=== PATIENT | female | born 1945 | race Caucasian/White ===

== ENCOUNTER 2017-01-15 02:44 | Emergency (ER) | payer OTHER ==
[2017-01-15 02:53] VITALS: BP 109/77; PULSE 80; RESP 18; TEMP 97.5; O2SAT 89
--- NOTE | 2017-01-15 03:36 | EDPHY ---
H & P Stated Complaint: pt says gastric tube came out Time Seen by Provider: 01/15/17 03:15 HPI/ROS: CHIEF COMPLAINT: G-tube fell out HISTORY OF PRESENT ILLNESS: The patient presents about 30 minutes after her G- tube fell out spontaneously. She is not quite sure how it happened. The balloon is still inflated. She has had this tube in for several months. She denies any bleeding or any other complaints. Review of systems: No abdominal pain, no vomiting No dizziness, no lightheadedness PHYSICAL General Appearance: Alert, no distress Eyes: Pupils equal and round no pallor or injection ENT, Mouth: Mucous membranes moist Gastrointestinal: Abdomen is soft and non-tender, stoma is normal-appearing Neurological: A&O, moves all extremities Extremities: symmetrical, full range of motion Psychiatric: Patient is oriented X 3, there is no agitation Source: Patient - Medical/Surgical History Hx Asthma: No Hx Chronic Respiratory Disease: Yes Hx Diabetes: No Hx Cardiac Disease: Yes Hx Renal Disease: No Hx Cirrhosis: No Hx Alcoholism: No Hx HIV/AIDS: No Hx Splenectomy or Spleen Trauma: No Other PMH: Esophogeal CA, PNA,intermittent htn, ann, osteoporosis,appendectomy , copd - Social History Smoking Status: Current every day smoker Constitutional: Initial Vital Signs Temperature (C) 36.4 C 01/15/17 02:48 Heart Rate 80 01/15/17 02:48 Respiratory Rate 18 01/15/17 02:48 Blood Pressure 109/77 01/15/17 02:48 O2 Sat (%) 89 L 01/15/17 02:48 O2 Delivery Mode Room Air Allergies/Adverse Reactions: No Known Allergies Allergy (Verified 01/15/17 12:16) Home Medications: Medication Instructions Recorded Herbals/Supplements -Info Only 1 ea PO DAILY 08/03/16 LORazepam [Ativan (*)] 0.5 mg PO HS 08/03/16 amLODIPine BESYLATE [Norvasc 5 mg 5 mg PO HS 08/03/16 (*)] Beclomethasone Qvar 80 [Qvar 80 2 puffs IH BID #0 mdi 08/04/16 (*)] Ipratropium/Albuterol [Combivent 1 inh IH QID #1 mdi 08/04/16 Respimat Inhal [place](*)] buPROPion 01/15/17 Medical Decision Making - Diagnostics Imaging: KUB with contrast shows contrast within the stomach, G tube in good position, interpreted by me, radiology interpretation pending. Differential Diagnosis: This is a 71-year-old female with history of esophageal cancer with chronic G- tube which fell out about 30 minutes prior to arrival. It is fully intact. In the emergency room, we placed another G-tube without difficulty. X-ray was performed to confirm placement. The patient was discharged from the emergency room. Departure - Departure Disposition: Home, Routine, Self-Care Clinical Impression: PEG tube malfunction Condition: Good Instructions: How to Use and Care for Your PEG Tube (ED) Referrals: Angeles Thayer MD [Primary Care Provider] - As per Instructions
== END 2017-01-15 03:32 | disposition home or self-care (01) ==
DX: K94.23 Gastrostomy malfunction (principal); I10 Essential (primary) hypertension; J44.9 Chronic obstructive pulmonary disease, unspecified; F17.200 Nicotine dependence, unspecified, uncomplicated; Z85.01 Personal history of malignant neoplasm of esophagus

== ENCOUNTER 2017-01-15 12:15 | Emergency (ER) | payer OTHER ==
[2017-01-15 12:19] VITALS: RESP 18
--- NOTE | 2017-01-15 14:55 | EDPHY ---
H & P Time Seen by Provider: 01/15/17 14:15 HPI/ROS: CHIEF COMPLAINT: PEG malfunction HISTORY OF PRESENT ILLNESS: 71-year-old female presents to the emergency department by private vehicle with concerns about her PEG tube malfunctioning. The patient has a history of throat cancer and has had a PEG tube present since 2012. She states that it frequently will come out on its own. She states that this has happened multiple times. This morning when she woke up she felt moisture and noticed that the tube was out. She tried placing it back in however to will not stay in. She denies abdominal pain currently. She did have some abdominal pain yesterday. She denies fevers or chills. No urinary symptoms. No back pain. REVIEW OF SYSTEMS: Constitutional: No fever, no chills. Eyes: No double or blurry vision. ENT: No sore throat. Respiratory: No cough, no shortness of breath. Cardiac: No chest pain. Gastrointestinal: No abdominal pain, vomiting or diarrhea. Genitourinary: No dysuria. Musculoskeletal: No neck or back pain. Skin: No rashes. Neurological: No headache. Past Medical/Surgical History: Throat cancer status post chemotherapy and radiation now has indwelling PEG tube since 2012 Social History: and lives in [place] Smoking Status: Current every day smoker Physical Exam: General Appearance: Alert, no distress. 126/76, temperature 36.3degrees. Nontoxic appearing. Eyes: Pupils equal and round. Extraocular motions are all intact. ENT: Mouth: Mucous membranes slightly dry. Respiratory: No wheezing, rhonchi, or rales, lungs are clear to auscultation. Cardiovascular: Regular rate and rhythm. Gastrointestinal: PEG tube placed with surrounding dressing. There is no obvious leakage noted from the insertion. There is no redness or signs of cellulitis or infection. Neurological: Alert and oriented x 3, cranial nerves II through XII grossly intact Skin: Warm and dry, no rashes. Musculoskeletal: Nontender to palpate along the cervical, thoracic or lumbar spine. Neck is supple. Extremities: Full range of motion and no peripheral edema. Psychiatric: Patient is oriented X 3, there is no agitation. Constitutional: Initial Vital Signs Temperature (C) 36.3 C 01/15/17 12:16 Heart Rate 82 01/15/17 12:16 Respiratory Rate 18 01/15/17 12:16 Blood Pressure 127/76 H 01/15/17 12:16 O2 Sat (%) 90 L 01/15/17 12:16 O2 Delivery Mode Room Air Allergies/Adverse Reactions: No Known Allergies Allergy (Verified 01/15/17 12:16) Home Medications: Medication Instructions Recorded Herbals/Supplements -Info Only 1 ea PO DAILY 08/03/16 LORazepam [Ativan (*)] 0.5 mg PO HS 08/03/16 amLODIPine BESYLATE [Norvasc 5 mg 5 mg PO HS 08/03/16 (*)] Beclomethasone Qvar 80 [Qvar 80 2 puffs IH BID #0 mdi 08/04/16 (*)] Ipratropium/Albuterol [Combivent 1 inh IH QID #1 mdi 08/04/16 Respimat Inhal [place](*)] buPROPion 01/15/17 Medical Decision Making ED Course/Re-evaluation: 71-year-old female presents with PEG tube malfunction. Interventional Radiology was contacted and Dr. Carlos Roper was able to reposition the PEG to appropriately. The patient was comfortable being discharged home. The PEG tube did not need 2 year placed. Differential Diagnosis: Including but not limited to PEG tube malfunction, perforation, obstruction Departure - Departure Disposition: Home, Routine, Self-Care Clinical Impression: PEG (percutaneous endoscopic gastrostomy) adjustment/replacement/removal Condition: Good Instructions: How to Use and Care for Your PEG Tube (ED) Additional Instructions: Follow up if you develop any problems with your PEG tube. Referrals: Angeles Thayer MD [Primary Care Provider] - As per Instructions
[2017-01-15] MEDS ORDERED: IOPAMIDOL (ISOVUE-300) 100 ML BTL IV ONE (17:24)
[2017-01-15 17:45] VITALS: BP 102/75; PULSE 75; TEMP 97.7; O2SAT 98
== END 2017-01-15 17:39 | disposition home or self-care (01) ==
DX: Z43.1 Encounter for attention to gastrostomy (principal); F17.200 Nicotine dependence, unspecified, uncomplicated; Z85.819 Personal history of malignant neoplasm of unspecified site of lip, oral cavity, and pharynx
CPT/HCPCS: 76000; 99284; Q9967

== ENCOUNTER → 2017-07-22 | Outpatient (CLI) | payer OTHER | LOC: BRMIMAGING 13:27 | PROVIDERS: ATTEND Internal Medicine ==

== ENCOUNTER → 2017-12-15 | Outpatient (CLI) | payer OTHER | LOC: CIMAGING 15:28 | PROVIDERS: ATTEND Internal Medicine | DX: J98.4 Other disorders of lung (principal) | CPT/HCPCS: 71046-PO ==

== ENCOUNTER → 2018-02-28 | Day surgery (SDC) | payer OTHER ==
[~2018-02-28] MED LIST: IOPAMIDOL (ISOVUE-300) 100 ML BTL ONE
== END | disposition home or self-care (01) ==
LOC: FIMAGING 09:53
PROVIDERS: ATTEND Internal Medicine Hematology & Oncology
PROC: 0DHA7DZ Insertion of Intraluminal Device into Jejunum, Via Natural or Artificial Opening (ICD-10-PCS; principal; 2018-02-28)
PROC: 0DP07UZ Removal of Feeding Device from Upper Intestinal Tract, Via Natural or Artificial Opening (ICD-10-PCS; principal; 2018-02-28)
DX: Z43.1 Encounter for attention to gastrostomy (principal)
CPT/HCPCS: Q9967

== ENCOUNTER → 2018-03-08 | Outpatient (CLI) | payer OTHER | LOC: FIMAGING 11:55 | PROVIDERS: ATTEND Internal Medicine Hematology & Oncology | DX: R91.1 Solitary pulmonary nodule (principal); I70.0 Atherosclerosis of aorta; J43.2 Centrilobular emphysema; K14.8 Other diseases of tongue; I65.23 Occlusion and stenosis of bilateral carotid arteries; C13.9 Malignant neoplasm of hypopharynx, unspecified; C10.3 Malignant neoplasm of posterior wall of oropharynx | CPT/HCPCS: 70491; 71260; Q9967 ==

== ENCOUNTER 2018-09-14 10:49 | Emergency (ER) | payer OTHER ==
[2018-09-14 10:56] VITALS: BP 121/71
--- NOTE | 2018-09-14 11:35 | EDPHY ---
H & P Stated Complaint: G tube dislodged. 5th time. No pain. Time Seen by Provider: 09/14/18 11:21 HPI/ROS: CHIEF COMPLAINT: G-tube fell out HISTORY OF PRESENT ILLNESS: 72-year-old female presents with a chief complaint of G tube falling out. Just prior to arrival, she was at the library when the Gtube accidentally fell out. Gtube in place for 5 years. No abdominal pain, vomiting or fever. No other complaints. - Personal History Current Tetanus/Diphtheria Vaccine: Yes - Medical/Surgical History Hx Asthma: No Hx Chronic Respiratory Disease: Yes Hx Diabetes: No Hx Cardiac Disease: Yes Hx Renal Disease: No Hx Cirrhosis: No Hx Alcoholism: No Hx HIV/AIDS: No Hx Splenectomy or Spleen Trauma: No Other PMH: Esophogeal CA, PNA,intermittent htn, ann, osteoporosis,appendectomy , copd - Social History Smoking Status: Current every day smoker - Physical Exam Exam: General Appearance: Alert, pleasant Eyes: Pupils equal and round ENT, Mouth: Mucous membranes moist Neck: Normal inspection Respiratory: Normal respiratory rate Cardiovascular: Regular rate and rhythm Gastrointestinal: Abdomen is soft and nontender, G-tube back in place, feels secure Neurological: A&O, nonfocal, normal gait Skin: Warm and dry Psychiatric: Mood and affect normal Constitutional: Initial Vital Signs Temperature (C) 36.7 C 09/14/18 10:54 Heart Rate 91 09/14/18 10:54 Respiratory Rate 16 09/14/18 10:54 Blood Pressure 121/71 H 09/14/18 10:54 O2 Sat (%) 91 L 09/14/18 10:54 O2 Delivery Mode Room Air Allergies/Adverse Reactions: No Known Allergies Allergy (Verified 09/14/18 10:54) Home Medications: Medication Instructions Recorded Herbals/Supplements -Info Only 1 ea PO DAILY 08/03/16 LORazepam [Ativan (*)] 0.5 mg PO HS 08/03/16 amLODIPine BESYLATE [Norvasc 5 mg 5 mg PO HS 08/03/16 (*)] Beclomethasone Qvar 80 [Qvar 80] 2 puffs IH BID #0 mdi 08/04/16 Ipratropium/Albuterol [Combivent 1 inh IH QID #1 mdi 08/04/16 Respimat Inhal [place](*)] buPROPion 01/15/17 Medical Decision Making ED Course/Re-evaluation: Feeding tube dislodgment in pt with long h/o Gtube in place and a well- established tract. Gtube replaced by ED RN. Feels secure and functioning properly. Departure - Departure Disposition: Home, Routine, Self-Care Clinical Impression: Gastrostomy tube replacement Condition: Good Instructions: How to Use and Care for Your PEG Tube (ED) Referrals: Angeles Thayer MD [Primary Care Provider] - As per Instructions
== END 2018-09-14 11:45 | disposition home or self-care (01) ==
DX: K94.20 Gastrostomy complication, unspecified (principal); J44.9 Chronic obstructive pulmonary disease, unspecified; C15.9 Malignant neoplasm of esophagus, unspecified; F17.200 Nicotine dependence, unspecified, uncomplicated

== ENCOUNTER → 2018-09-19 | Outpatient (CLI) | payer OTHER ==
[~2018-09-19] MED LIST changes: +GADOBUTROL 10 ML VIAL IVP ONE; -IOPAMIDOL (ISOVUE-300) 100 ML BTL ONE
== END ==
LOC: FIMAGING 11:54
PROVIDERS: ATTEND Internal Medicine
DX: R42 Dizziness and giddiness (principal); G31.9 Degenerative disease of nervous system, unspecified; Z78.0 Asymptomatic menopausal state
CPT/HCPCS: 70553; A9585

== ENCOUNTER → 2018-09-29 | Day surgery (SDC) | payer OTHER ==
[~2018-09-29] MED LIST changes: -GADOBUTROL 10 ML VIAL IVP ONE; +IOPAMIDOL (ISOVUE-300) 100 ML BTL ONE
== END | disposition home or self-care (01) ==
LOC: FIMAGING 12:08
PROVIDERS: ATTEND Internal Medicine Hematology & Oncology
DX: K94.23 Gastrostomy malfunction (principal)
CPT/HCPCS: 49452; C1729; C1769; Q9967

== ENCOUNTER → 2018-10-05 | Outpatient (CLI) | payer OTHER | LOC: BRMIMAGING 08:43 | PROVIDERS: ATTEND Internal Medicine | DX: Z13.820 Encounter for screening for osteoporosis (principal); M81.0 Age-related osteoporosis without current pathological fracture; Z78.0 Asymptomatic menopausal state ==

== ENCOUNTER → 2019-02-20 | Outpatient (CLI) | payer OTHER | LOC: FIMAGING 11:56 | PROVIDERS: ATTEND Family Medicine | DX: R42 Dizziness and giddiness (principal); R19.5 Other fecal abnormalities; R26.89 Other abnormalities of gait and mobility; D64.9 Anemia, unspecified; I63.9 Cerebral infarction, unspecified; R27.0 Ataxia, unspecified ==

== ENCOUNTER 2019-02-23 13:45 | Emergency (ER) | payer OTHER ==
[2019-02-23 14:21] LABS: PLATELET COUNT 314 10^3/uL (150-400)
[2019-02-23] MEDS ORDERED: PANTOPRAZOLE SODIUM 40 MG VIAL IVP ONE (14:36)
--- NOTE | 2019-02-23 14:39 | EDPHY ---
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 Onset of lightheadedness 3 weeks ago, associated with black stools. Black stools occur twice daily. Seen by PCP today and hematocrit 33. Concern for GI bleed. The patient has a PEG tube and does not take anything by mouth. Also has a chronic cough x 6 months. Feels SOB with exertion. Has an appointment with GI in 2 weeks. Has a prescription for Protonix, but has not started Protonix yet. No associated abdominal pain or vomiting. REVIEW OF SYSTEMS: complete 10 point ROS reviewed and is negative except for the noted elements in the HPI - Medical/Surgical History Hx Asthma: No Hx Chronic Respiratory Disease: Yes Hx Diabetes: No Hx Cardiac Disease: Yes Hx Renal Disease: No Hx Cirrhosis: No Hx Alcoholism: No Hx HIV/AIDS: No Hx Splenectomy or Spleen Trauma: No Other PMH: Esophogeal CA, PNA,intermittent htn, ann, osteoporosis,appendectomy , copd - Social History Smoking Status: Current every day smoker Alcohol Use: Sober - Physical Exam Exam: General Appearance: Alert, pleasant Eyes: Pupils equal and round, no conjunctival pallor ENT, Mouth: Mucous membranes moist Neck: Normal inspection Respiratory: Lungs are clear to auscultation Cardiovascular: Regular rate and rhythm Gastrointestinal: Abdomen is soft and nontender Rectal: Greenish stool, no black or bloody stool Neurological: A&O, nonfocal, normal gait Skin: Warm and dry, no rash Extremities: Nontender, no pedal edema Psychiatric: Mood and affect normal Constitutional: Initial Vital Signs Temperature (C) 36.5 C 02/23/19 13:48 Heart Rate 82 02/23/19 13:48 Respiratory Rate 16 02/23/19 13:48 Blood Pressure 128/57 H 02/23/19 13:48 O2 Sat (%) 90 L 02/23/19 13:48 O2 Delivery Mode Room Air Allergies/Adverse Reactions: No Known Allergies Allergy (Verified 09/14/18 10:54) Home Medications: Medication Instructions Recorded amLODIPine BESYLATE [Norvasc 5 mg 5 mg PO HS 08/03/16 (*)] Ipratropium/Albuterol [Combivent 1 inh IH QID #1 mdi 08/04/16 Respimat Inhal [place](*)] Flovent 110 MCG Hfa MDI (*) 02/23/19 Spiriva Inhaler (RX) 02/23/19 Medical Decision Making - Diagnostics EKG Interpretation: EKG interpreted by me reveals NSR, rate 76, poor R wave progression. Interpretation: abnormal EKG Imaging Results: Chest X-Ray 02/23/19 14:39 Impression: Stable hyperaerated chest without acute cardiopulmonary process. Imaging: I viewed and interpreted images myself ED Course/Re-evaluation: This patient presents with lightheadedness and a clinical history suggestive upper GI hemorrhage. Stool is positive for occult blood, not frankly bloody. Hematocrit is 35. Protonix 40 mg IV given. Discussed with the patient, admission vs d/c home. Pt greatly prefers d/c home and I feel this is a safe plan. I consulted Dr. Ruelas, who will help arrange f/u for the patient in the office on Tuesday or Tuesday. Pt will start oral PPI tomorrow. Differential Diagnosis: includes though not limited to severe anemia, esophageal varices/tumor, PUD, lower GI bleed such as diverticular bleed - Data Points Laboratory Results: Laboratory Results 02/23/19 14:11 02/23/19 14:11 Medications Given: Discontinued Medications Pantoprazole Sodium (Protonix) 40 mg IVP EDNOW ONE Stop: 02/23/19 14:37 Last Admin: 02/23/19 14:57 Dose: 40 mg Point of Care Test Results: Chemistry 02/23/19 14:28 POC Troponin I 0.00 ng/mL ng/mL (0.00-0.08) Departure - Departure Disposition: Home, Routine, Self-Care Clinical Impression: GI bleeding Qualifiers: GI bleed type/associated pathology: unspecified gastrointestinal hemorrhage type Qualified Code(s): K92.2 - Gastrointestinal hemorrhage, unspecified Condition: Good Instructions: Gastrointestinal Bleeding (ED) Additional Instructions: Dr. Ruelas's office will call you this afternoon with an appointment time. GI will see you on Tuesday or Tuesday. Over the weekend, please return for worsening symptoms, increasing bleeding or any concerns. Referrals: Maria D Carlos MD [Primary Care Provider] - As per Instructions Oliver Ruelas MD [Medical Doctor] - As per Instructions
--- NOTE | 2019-02-23 15:17 | CPEKG ---
Test Reason : OPEN Blood Pressure : / mmHG Vent. Rate : 076 BPM Atrial Rate : 076 BPM P-R Int : 153 ms QRS Dur : 059 ms QT Int : 374 ms P-R-T Axes : 083 060 056 degrees QTc Int : 421 ms Sinus rhythm Anteroseptal infarct, age indeterminate Confirmed by Lianne Cee ([id number]) on 02/23/2019 3:16:43 PM Referred By: LIANNE CEE Confirmed By:Lianne Cee
[2019-02-23 15:45] VITALS: BP 123/78
== END 2019-02-23 15:47 | disposition home or self-care (01) ==
DX: K92.2 Gastrointestinal hemorrhage, unspecified (principal); F17.200 Nicotine dependence, unspecified, uncomplicated
CPT/HCPCS: 84484-ER; 96374

== ENCOUNTER 2019-04-11 17:19 | Emergency (ER) | payer OTHER ==
[2019-04-11 17:25] VITALS: BP 131/68
--- NOTE | 2019-04-11 18:12 | EDPHY ---
H & P Stated Complaint: G - tube fell out Time Seen by Provider: 04/11/19 17:35 HPI/ROS: Chief Complaint: G-tube dislodged HPI: Patient presents the ED after G-tube dislodged. She is chronically G- tube fed secondary to throat cancer. The patient reports the balloon ruptured. She denies any acute abdominal pain. She denies vomiting or diarrhea. REVIEW OF SYSTEMS: Review of systems as above Source: Patient - Personal History Current Tetanus Diphtheria and Acellular Pertussis (TDAP): Yes - Medical/Surgical History Hx Asthma: No Hx Chronic Respiratory Disease: Yes Hx Diabetes: No Hx Cardiac Disease: Yes Hx Renal Disease: No Hx Cirrhosis: No Hx Alcoholism: No Hx HIV/AIDS: No Hx Splenectomy or Spleen Trauma: No Other PMH: Esophogeal CA, PNA,intermittent htn, ann, osteoporosis,appendectomy , copd - Social History Smoking Status: Current every day smoker - Physical Exam Exam: General Appearance: Alert, no distress Gastrointestinal: Abdomen is soft and nontender, no masses, bowel sounds normal , pink and dry fistula noted on anterior abdominal wall Skin: Warm and dry, no rashes Constitutional: Initial Vital Signs Temperature (C) 36.8 C 04/11/19 17:22 Heart Rate 88 04/11/19 17:22 Respiratory Rate 16 04/11/19 17:22 Blood Pressure 131/68 H 04/11/19 17:22 O2 Delivery Mode Room Air Allergies/Adverse Reactions: No Known Allergies Allergy (Verified 09/14/18 10:54) Home Medications: Medication Instructions Recorded amLODIPine BESYLATE [Norvasc 5 mg 5 mg PO HS 08/03/16 (*)] Ipratropium/Albuterol [Combivent 1 inh IH QID #1 mdi 08/04/16 Respimat Inhal [place](*)] Flovent 110 MCG Hfa MDI (*) 02/23/19 Spiriva Inhaler (RX) 02/23/19 Omeprazole 04/11/19 Serevent Diskus (*) 04/11/19 Medical Decision Making Procedures: Procedure: G-tube replacement A 20 [place] G-tube was replaced in the patient's abdominal wall without complication. Gastric contents were aspirated. The patient tolerated the procedure well will be discharged home. Departure - Departure Disposition: Home, Routine, Self-Care Clinical Impression: Malfunction of gastrostomy tube Condition: Good Instructions: How to Use and Care for Your PEG Tube (ED) Additional Instructions: 1. Return to the ED for any abdominal pain, recurrent tube malfunction or other concerns. Referrals: Maria D Carlos MD [Primary Care Provider] - As per Instructions
== END 2019-04-11 18:15 | disposition home or self-care (01) ==
PROC: 0DH67UZ Insertion of Feeding Device into Stomach, Via Natural or Artificial Opening (ICD-10-PCS; principal; 2019-04-11)
DX: K94.23 Gastrostomy malfunction (principal); C14.0 Malignant neoplasm of pharynx, unspecified

== ENCOUNTER 2019-04-23 13:46 | Emergency (ER) | payer OTHER ==
--- NOTE | 2019-04-23 15:22 | EDPHY ---
HPI/HX/ROS/PE/MDM Narrative: CHIEF COMPLAINT: G-tube malfunction HPI: This patient is a 73-year-old female with history of esophageal cancer. She is chronically fed by G-tube secondary to this, which was replaced 04/11 in this ED. Tuesday, she developed pain at the insertion site, particularly with movement including coughing. She has had a G-tube for the past five years and the discomfort is unusual for her. It has been leaking more than ever before as well. Today, she lifted the tube briefly to clean around it, and she had sudden pain, so sharp that she felt she was going to faint. She has noted tenderness and mild erythema surrounding the site. She denies fever, vomiting, chest pain, difficulty breathing, headache, or other associated symptoms. REVIEW OF SYSTEMS: A comprehensive 10 system review of systems is otherwise negative aside from elements mentioned in the history of present illness and medical decision making. PMH: Esophageal cancer. Hypertension. COPD. History of pneumonia. Osteoporosis. History of cholecystectomy, appendectomy. SOCIAL HISTORY: . at bedside. Retired. Lives in [place]. PHYSICAL EXAM: General:Patient is alert, in no acute distress. ENT:Eyes are normal to inspection. ENT inspection normal. Neck: Normal inspection. Full range of motion. Respiratory:No respiratory distress. Breath sounds normal bilaterally. Cardiovascular: Regular rate and rhythm. Strong peripheral pulses. Normal cap refill. Abdomen: G-tube in place. No discharge, no erythema. Mild tenderness described as "soreness" around the site. There are no peritoneal signs. There are normal bowel sounds. Back: Normal to inspection. No tenderness to palpation. Skin: Normal color. No rash. Warm and dry. Extremities: Normal appearance. Full range of motion. Neuro: Oriented x3. Normal motor function. Normal sensory function. ED Course: 73 y/o female presents with discomfort and tenderness around her g-tube insertion site, ongoing for three days. Plan for abdominal x-ray, labs including CBC, chemistries. X-ray shows gastrostomy in the left upper quadrant of the abdomen, no acute processes noted. Laboratory studies are largely unremarkable. 16:[address] Gibson, general surgeon. He will evaluate the patient here in the ED. Dr. Gibson has evaluated the patient. He notes the the G-tube may have been slightly too tight. He adjusted this and the patient feels considerable relief. Saline flush is successful. The patient may follow up in his office for further evaluation and management. Reassessed patient. She continues to feel better and is comfortable with discharge home. Follow up and return precautions discussed. She is comfortable with this plan. - Data Points Imaging Results: Imaging Impressions Abdomen X-Ray 04/23/19 15:31 Impression: 1. Gastrostomy in the left upper quadrant of the abdomen. 2. Prior cholecystectomy. 3. Nonspecific bowel gas pattern. Imaging: I viewed and interpreted images myself Laboratory Results: Laboratory Results 04/23/19 15:50 04/23/19 15:50 04/23/19 04/23/19 15:50 15:50 WBC 6.45 10^3/uL 10^3/uL (3.80-9.50) RBC 3.97 10^6/uL L 10^6/uL (4.18-5.33) Hgb 13.6 g/dL g/dL (12.6-16.3) Hct 40.6 % % (38.0-47.0) MCV 102.3 fL H fL (81.5-99.8) MCH 34.3 pg H pg (27.9-34.1) MCHC 33.5 g/dL g/dL (32.4-36.7) RDW 14.4 % % (11.5-15.2) Plt Count 246 10^3/uL 10^3/uL (150-400) MPV 10.0 fL fL (8.7-11.7) Neut % (Auto) 66.8 % % (39.3-74.2) Lymph % (Auto) 17.8 % % (15.0-45.0) [place] % (Auto) 14.1 % H % (4.5-13.0) Eos % (Auto) 0.8 % % (0.6-7.6) Baso % (Auto) 0.3 % % (0.3-1.7) Nucleat RBC Rel Count 0.0 % % (0.0-0.2) Absolute Neuts (auto) 4.31 10^3/uL 10^3/uL (1.70-6.50) Absolute Lymphs (auto) 1.15 10^3/uL 10^3/uL (1.00-3.00) Absolute Monos (auto) 0.91 10^3/uL H 10^3/uL (0.30-0.80) Absolute Eos (auto) 0.05 10^3/uL 10^3/uL (0.03-0.40) Absolute Basos (auto) 0.02 10^3/uL 10^3/uL (0.02-0.10) Absolute Nucleated RBC 0.00 10^3/uL 10^3/uL (0-0.01) Immature Gran % 0.2 % % (0.0-1.1) Immature Gran # 0.01 10^3/uL 10^3/uL (0.00-0.10) Sodium 136 mEq/L mEq/L (135-145) Potassium 3.8 mEq/L mEq/L (3.5-5.2) Chloride 99 mEq/L mEq/L (97-110) Carbon Dioxide 29 mEq/l mEq/l (22-31) Anion Gap 8 mEq/L mEq/L (6-14) BUN 17 mg/dL mg/dL (7-23) Creatinine 0.5 mg/dL L mg/dL (0.6-1.0) Estimated GFR > 60 Glucose 79 mg/dL mg/dL (70-100) Calcium 10.0 mg/dL mg/dL (8.5-10.4) General Time Seen by Provider: 04/23/19 14:32 Initial Vital Signs: Initial Vital Signs Temperature (C) 36.7 C 04/23/19 13:49 Heart Rate 86 04/23/19 13:49 Respiratory Rate 16 04/23/19 13:49 Blood Pressure 145/81 H 04/23/19 13:49 O2 Sat (%) 89 L 04/23/19 13:49 O2 Delivery Mode Room Air Allergies/Adverse Reactions: No Known Allergies Allergy (Verified 04/23/19 13:52) Home Medications: Medication Instructions Recorded amLODIPine BESYLATE [Norvasc 5 mg 5 mg PO HS 08/03/16 (*)] Flovent 110 MCG Hfa MDI (*) 02/23/19 Spiriva Inhaler (RX) 02/23/19 Omeprazole 04/11/19 Serevent Diskus (*) 04/11/19 Aspirin 81mg (*) 04/23/19 Ferrous Sulfate 04/23/19 Vitamin D3 04/23/19 Departure - Departure Disposition: Home, Routine, Self-Care Clinical Impression: Malfunction of gastrostomy tube Condition: Good Instructions: How to Use and Care for Your PEG Tube (ED) Additional Instructions: Follow up with Dr. Gibson in his office this week as we discussed. Return to the emergency department for recurrence of pain, fever, G-tube malfunction, or other worsening of condition or further concerns. Referrals: Maria D Carlos MD [Primary Care Provider] - As per Instructions Hernando Gibson MD [Medical Doctor] - As per Instructions Report Scribed for: Hira Whiteside Report Scribed by: Nerissa Diamond Date of Report: 04/23/19 Time of Report: 15:21 Physician Review and Approval Statement: Portions of this note were transcribed by an ED scribe. I personally performed the history, physical exam, and medical decision making; and confirm the accuracy of the information in the transcribed note.
[2019-04-23 16:03] LABS: PLATELET COUNT 246 10^3/uL (150-400)
[2019-04-23 16:59] VITALS: BP 122/66
== END 2019-04-23 16:35 | disposition home or self-care (01) ==
DX: T85.848A Pain due to other internal prosthetic devices, implants and grafts, initial encounter (principal); I10 Essential (primary) hypertension; J44.9 Chronic obstructive pulmonary disease, unspecified; Z93.1 Gastrostomy status; Z85.01 Personal history of malignant neoplasm of esophagus

== ENCOUNTER → 2019-05-03 | Outpatient (CLI) | payer OTHER | LOC: FIMAGING 08:16 ==